=== PATIENT | male | born 1975 | race Caucasian/White ===

== ENCOUNTER 2019-04-15 08:19 | Emergency (ER) | payer BC ==
[~2019-04-15] VITALS: Ht 180.3 cm; Wt 82.2 kg
[2019-04-15 08:51] VITALS: BP 153/62
--- NOTE | 2019-04-15 08:57 | PHYS DOC ---
Adult General Chief Complaint Chief Complaint: LACERATION/AVULSION HPI HPI Patient is a 43 year old male who presents with using a preparing box tender when the cover on the blade came off and he cut his left thumb tip. Patient states he does not know when his last tetanus shot was. Patient has a history of MS and states that he has numbness and tingling in his bilateral fingers infiltrated does not have any pain. This incident happened at 7:45 AM today. Review of Systems Review of Systems Constitutional: Denies fever or chills [] Eyes: Denies change in visual acuity, redness, or eye pain [] HENT: Denies nasal congestion or sore throat [] Respiratory: Denies cough or shortness of breath [] Cardiovascular: No additional information not addressed in HPI [] GI: Denies abdominal pain, nausea, vomiting, bloody stools or diarrhea [] : Denies dysuria or hematuria [] Musculoskeletal: Denies back pain or joint pain [] Integument: Left thumb tip laceration. Denies rash or skin lesions [] Neurologic: Denies headache, focal weakness or sensory changes [] Endocrine: Denies polyuria or polydipsia [] All other systems were reviewed and found to be within normal limits, except as documented in this note. Current Medications Current Medications Current Medications Medications (Trade) Dose Ordered Sig/Mer Start Time Stop Time Status Last Admin Dose Admin Diphtheria/ Tetanus/Acell Pertussis (Boostrix) 0.5 ml ONCE ONCE 04/15/19 09:00 04/15/19 09:01 DC Lidocaine HCl (Lidocaine 1% 20ml Vial) 20 ml 1X ONCE 04/15/19 08:45 04/15/19 08:54 DC Allergies Allergies Allergies Coded Allergies Type Severity Reaction Last Updated Verified lisinopril Allergy Intermediate HIVES, ABD PAIN 04/15/19 Yes Physical Exam Physical Exam Constitutional: Well developed, well nourished, no acute distress, non-toxic appearance. [] HENT: Normocephalic, atraumatic, bilateral external ears normal, oropharynx moist, no oral exudates, nose normal. [] Eyes: PERRLA, EOMI, conjunctiva normal, no discharge. [] Neck: Normal range of motion, no tenderness, supple, no stridor. [] Cardiovascular:Heart rate regular rhythm, no murmur [] Lungs & Thorax: Bilateral breath sounds clear to auscultation [] Abdomen: Bowel sounds normal, soft, no tenderness, no masses, no pulsatile masses. [] Skin: Left thumb pad laceration. Warm, dry, no erythema, no rash. [] Back: No tenderness, no CVA tenderness. [] Extremities: No tenderness, no cyanosis, no clubbing, ROM intact, no edema. [] Neurologic: Alert and oriented X 3, normal motor function, normal sensory function, no focal deficits noted. [] Psychologic: Affect normal, judgement normal, mood normal. [] Current Patient Data Vital Signs Vital Signs Date Time Temp Pulse Resp B/P (MAP) Pulse Ox O2 Delivery O2 Flow Rate FiO2 04/15/19 08:51 98.2 102 18 153/62 (92) 97 98.2 EKG EKG [] Radiology/Procedures Radiology/Procedures [] Course & Med Decision Making Course & Med Decision Making Patient is a 43 year old male who presents with using a preparing box tender when the cover on the blade came off and he cut his left thumb tip. Patient states he does not know when his last tetanus shot was. Patient has a history of MS and states that he has numbness and tingling in his bilateral fingers infiltrated does not have any pain. This incident happened at 7:45 AM today. Alert and oriented. Able to wear the steady gait. Skin is pink warm and dry. Patient has a left thumb tip "U" shaped laceration. Eating is controlled. Skin is pink warm and dry. Cap refill less than 3 seconds. Radial pulse strong present. Patient has full range of motion of the thumb in all joints. There is no laxity in time joints. Boostrix given in ED. Laceration Repair by me: Anesthesia: 1% lidocaine locally Location: Left thumb tip pad Tendon/Joint/Nerves: No injury Foreign body: None detected after copious irrigation with saline and chlorhexidine and exploration Technique: 6 Simple Interrupted Sutures Complexity: No subcutaneous sutures/mucosal repair/edge excision Post Closure Length: 2 cm Patient's bleeding was easily controlled in the department and there is no indication of anemia. No evidence of compartment syndrome, neurologic injury, vascular injury, open joint, tendon laceration, or foreign body. Patient is appropriate for outpatient follow up. 48 hour wound check. Scar minimization instructions given. Dragon Disclaimer Dragon Disclaimer This electronic medical record was generated, in whole or in part, using a voice recognition dictation system. Departure Departure Impression: Primary Impression: Laceration Disposition: 01 HOME, SELF-CARE Condition: STABLE Patient Instructions: Fingertip Laceration Additional Instructions: Return in 7-10 days for suture removal. Watch for signs of infection as we brennen ked about. Use ibuprofen for pain. LACEY JOHN APRN Apr 15, 2019 08:57
[2019-04-15] MEDS: LIDOCAINE 1% Multi-Dose 20 ML VIAL. INJ ONE (10:25)
[2019-04-15] MEDS: DIPHTH,PERTUSS(ACELL),TET TOX 0.5 ML DISP.SYRIN. VAX IM ONE (10:26)
== END 2019-04-15 10:29 | disposition home or self-care (01) ==
LOC: ER 08:19
DX: S61.012A Laceration without foreign body of left thumb without damage to nail, initial encounter (principal); Z88.8 Allergy status to other drugs, medicaments and biological substances; W26.8XXA Contact with other sharp object(s), not elsewhere classified, initial encounter; Y93.89 Activity, other specified; Y92.89 Other specified places as the place of occurrence of the external cause; Y99.8 Other external cause status
CPT/HCPCS: 12001; 90471; 90715; 99283